=== PATIENT | male | born 1990 | race Hispanic/Latino ===

== ENCOUNTER 2016-10-29 11:10 | Outpatient (CLI) | payer BC, OTHER ==
[2016-10-29 16:49] LABS: #Basophils 0.2 thou/uL (0.0-0.2); #Eosinphils 0.3 thou/uL (0.0-0.7); #Lymphocytes 2.7 thou/uL (1.20-3.40); #Monocytes 0.6 thou/uL (0.11-0.59); #Neutrophils 5.1 thou/uL (1.40-6.50); %Basophils 2.2 % (0.0-1.0); %Eosinophils 3.9 % (0.0-10.0); %Lymphocytes 29.8 % (21.0-51.0); %Monocytes 7.1 % (0.0-10.0); Mean Corpuscular HGB CONC 33.9 g/dL (32.0-36.0); Mean Corpuscular Hemoglobin 31.3 pg (27.0-31.0); Mean Corpuscular Volume 92.1 fl (80.0-94.0); Mean Platelet Volume 6.5 fL (7.4-10.4); Platelet Count 263 thou/uL (130-400); RBC Distribution Width 11.6 % (11.5-14.5); Red Blood Cell (RBC) Count 4.79 mill/uL (4.70-6.10); White Blood Cell (WBC) Count 8.9 thou/uL (4.8-10.8)
[2016-10-29 17:20] LABS: Hemoglobin A1c 5.2 % (4.0-6.0)
[2016-10-29 17:30] LABS: ALT (SGPT) 70 U/L (0-55); AST (SGOT) 45 U/L (5-34); Albumin 4.8 g/dL (3.5-5.0); Alkaline Phosphatase 70 U/L (40-150); Anion Gap 15 mmol/L (10-20); BUN (Urea Nitrogen) 13 mg/dL (8.9-20.6); Bilirubin, Total 0.4 mg/dL (0.2-1.2); Calc. Creatinine Clearance 0 mL/min (70-130); Calcium 9.7 mg/dL (7.8-10.44); Carbon Dioxide 27 mmol/L (22-29); Chloride 104 mmol/L (98-107); Cholesterol 163 mg/dL (< 200 Desired); Estimated GFR-MDRD 84; Globulin 2.9 g/dL (2.4-3.5); Glucose 95 mg/dL (70-105); HDL Cholesterol 55 mg/dL (>60 Neg Risk); LDL Cholesterol, Calculated 98 mg/dL; Potassium 5.2 mmol/L (3.5-5.1); Protein, Total 7.7 g/dL (6.0-8.3); Sodium 141 mmol/L (136-145); Triglycerides 48 mg/dL (Less than 150)
== END 2016-10-29 11:11 | disposition home or self-care (01) ==
LOC: LABLEX 11:10
PROVIDERS: ATTEND Family Medicine
DX: Z00.00 Encounter for general adult medical examination without abnormal findings (principal)
CPT/HCPCS: 80053; 80061; 83036; 85025

== ENCOUNTER 2016-11-05 12:38 | Outpatient (CLI) | payer BC ==
--- NOTE | 2016-11-05 22:30 | ULT ---
TESTICULAR ULTRASOUND 11/05/16 Ultrasonography of the scrotum was performed for evaluation of a scrotal mass. The testicles both appear normal with no sign of mass. The right measures 5.6 x 3.1 x 3.6 cm and the left measures 4.9 x 2.6 x 3.2 cm. Vascular flow is present in each. The right epididymis is enlarged measuring 2 cm at its head secondary to a large cyst. A 1.8 cm epid idymal cyst is present with some debris within it. The left epididymis was normal in size and appear ance. A 6.1 x 3.7 x 5.8 cm echogenic density is seen in the superior portion of the scrotal sac. There is no appreciable change within with a Valsalva maneuver. It is presumed to be a hernia, though the ult rasound does not prove this. IMPRESSION: 1. Normal testicles. 2. 1.8 cm right epididymal cyst. 3. Large soft tissue density in the superior scrotum that is presumed to be a hernia based on l ocation. The ultrasound itself does not confirm this. Physical exam and/or CT might do so. POS: HOME
== END 2016-11-05 12:39 | disposition home or self-care (01) ==
LOC: BURULT 12:38
PROVIDERS: ATTEND Family Medicine
DX: N50.9 Disorder of male genital organs, unspecified (principal); N50.3 Cyst of epididymis
CPT/HCPCS: 76870; 93976